=== PATIENT | female | born 1955 | race Asian ===

== ENCOUNTER 2018-12-02 06:45 | Day surgery (SDC) | payer MEDICARE, OTHER ==
[~2018-12-02] VITALS: Ht 165.1 cm; Wt 87.8 kg
[2018-12-02 08:20] VITALS: Ht 165.1 cm; Wt 87.8 kg
[2018-12-02] MEDS ORDERED: [UNRECOGNIZED DRUG - OTHER] (08:25)
[2018-12-02] MEDS ORDERED: HTN MED (08:25)
[2018-12-02] MEDS ORDERED: INSULIN (08:25)
--- NOTE | 2018-12-02 08:35 | PREAC ---
Date/Time of Note Date/Time of Note DATE: 12/02/18 TIME: 08:34 Anesthesia Eval and Record Evaluation Time Pre-Procedure Interview DATE: 12/02/18 TIME: 08:34 Age 63 Sex female NPO: 8 hrs Preoperative diagnosis Change in bowel habit Planned procedure Colonoscopy Past Medical History Past Medical History: Includes Cardio: HTN, Dyslipidemia Endo: Diabetes GI: Obesity Surgery & Anesthesia Issues No known issue Meds Anticoagulation: No Beta Tata within 24 hr: No Reason Beta Tata not given: Pt. not on B-Tata Reported Medications [Insulin] No Conflict Check 12/02/18 [Med For Dm] No Conflict Check 12/02/18 [Htn Med] No Conflict Check 12/02/18 Meds reviewed: Yes Allergies Coded Allergies: No Known Allergy (Unverified , 12/02/18) Allergies Reviewed: Yes Labs/Studies Labs Reviewed: Reviewed by anesthesiologist test: N/A Pre-procedure Exam Airway: Adequate mouth opening Mallampati: Mallampati II Teeth: Abnormal (Denture) Lung: Normal Heart: Normal ASA Physical Status ASA physical status: 3 Emergency: None Planned Anesthetic General/MAC: MAC Pre-operative Attestations Prior to commencing anesthesia and surgery, the patient was re-evaluated, there was verification of: *The patient's identity *The results of appropriate recent lab work and preoperative vital signs *The above evaluation not changing prior to induction *Anesthetic plan, risk benefits, alternative and complications discussed with patient/family; questions answered; patient/family understands, accepts and wishes to proceed. EKATERINA ANDERSON MD Dec 02, 2018 08:35
[2018-12-02] MEDS ORDERED: PROPOFOL 20 ML ONE (08:37)
[2018-12-02 08:49] VITALS: BP 200/89; PULSE 59; RESP 16
--- NOTE | 2018-12-02 10:04 | PAC ---
Date/Time of Note Date/Time of Note DATE: 12/02/18 TIME: 10:02 Post-Anesthesia Notes Post-Anesthesia Note Last documented vital signs Vital Signs Date Temp Pulse Resp B/P (MAP) Pulse Ox O2 O2 Flow FiO2 Time Delivery Rate 12/02/18 97.5 59 16 200/89 100 Room Air 08:49 (126) Activity: WNL Respiratory function: WNL Cardiovascular function: WNL Mental status: Baseline Pain reasonably controlled: Yes Hydration appropriate: Yes Nausea/Vomiting absent: Yes Comments BT: 87.9, BP: 192/91, HR: 57, RR: 18, PULSE OX: 98 EKATERINA ANDERSON MD Dec 02, 2018 10:04
--- NOTE | 2018-12-03 12:58 | CONS ---
DATE OF ADMISSION: 12/02/2018 DATE OF CONSULTATION: PARTIENT NAME: CANDELARIO BAUMANN TYPE OF CONSULTATION: Preoperative gastroenterology. Dr. Baltazar: I thank you very much for this kind referral. HISTORY OF PRESENT ILLNESS: Ms. Candelario Baumann is a 63-year-old female patient who has been referred to me for further evaluation of change in the bowel habit with constipation. No past history of colon n eoplasm. The patient has never had a screening colonoscopy. Appetite is good, and there is no weigh t loss. No upper abdominal pain, nausea or vomiting. Not on nonsteroidal anti-inflammatory agents. No history of gallstones or liver disease. She is hypertensive. She has diabetes. No heart diseas e, lung problem or kidney disease. PAST MEDICAL HISTORY: She has hyperlipidemia. SOCIAL HISTORY: Nonsmoker. No alcohol abuse. FAMILY HISTORY: No family history of gastrointestinal tract neoplasm. ALLERGIES: NO DRUG ALLERGIES. MEDICATIONS: She takes medicine for high blood pressure, diabetes and cholesterol. She does not rem ember the names. PHYSICAL EXAMINATION: VITAL SIGNS: She is 5 feet 5 inches tall and weighs 192 pounds. BMI 32, blood pressure 142/86. HEART: Normal heart sounds. LUNGS: Clear. ABDOMEN: Soft. No masses. Normal bowel sounds. NEUROLOGIC: Normal neurological exam. IMPRESSION: 1. Change in the bowel habit. 2. The patient has never had a screening colonoscopy. 3. Hypertension. 4. Diabetes mellitus. 5. Hyperlipidemia. 6. Elevated body mass index. PLAN: 1. Follow up with the primary MD for the management of elevated BMI and hypertension. 2. The patient was strongly advised to lose weight. 3. Colonoscopy for further evaluation. 4. MiraLax 17 g dissolved in a glass of water p.o. daily. The procedure and possible complications are well explained to the patient. She understands and cons ents to the procedure. I thank you once again. With warmest personal regards, Dictated By: MESERET MARTINS/MAYNOR Conf#: [id number] DID#: [id number]
== END 2018-12-02 12:32 | disposition home or self-care (01) ==
LOC: GIL 06:45
PROVIDERS: ATTEND Internal Medicine Gastroenterology
DX: R19.4 Change in bowel habit (principal); K64.8 Other hemorrhoids; I10 Essential (primary) hypertension; E11.9 Type 2 diabetes mellitus without complications; E78.5 Hyperlipidemia, unspecified
CPT/HCPCS: 82962; 88305